=== PATIENT | male | born 1980 | race Caucasian/White ===

== ENCOUNTER 2016-11-08 09:57 | Outpatient (CLI) | payer MEDICARE, MEDICAID ==
[2016-11-08 13:04] LABS: BASOPHILS % (AUTO) 0.3 %; EOSINOPHILS % (AUTO) 0.4 %; HCT - HEMATOCRIT 41.9 % (42.0-52.0); HGB - HEMOGLOBIN 14.4 g/dL (14.0-18.0); LYMPHOCYTES # (AUTO) 1.1 10^3/uL (1.5-3.5); LYMPHOCYTES % (AUTO) 24.1 %; MEAN CORPUSCULAR HEMOGLOBIN 28.4 pg (27.0-31.0); MEAN CORPUSCULAR HGB CONC 34.4 g/dL (32.0-36.0); MEAN CORPUSCULAR VOLUME 82.8 fL (80.0-94.0); MEAN PLATELET VOLUME 8.9 fL (7.4-11.4); MONOCYTES # (AUTO) 0.3 10^3/uL (0.0-1.0); MONOCYTES % (AUTO) 6.8 %; NEUTROPHILS # (AUTO) 3.2 10^3/uL (1.5-6.6); NEUTROPHILS % (AUTO) 68.4 %; NUCLEATED RED BLOOD CELLS AUTO 0.3 /100WBC; RED BLOOD COUNT 5.06 10^6/uL (4.70-6.10); RED CELL DISTRIBUTION WIDTH 13.2 % (12.0-15.0); UNCORRECTED WHITE BLOOD COUNT 4.7 x10^3/uL; WHITE BLOOD COUNT 4.7 x10^3/uL (4.8-10.8)
[2016-11-08 14:01] LABS: ALBUMIN/GLOBULIN RATIO 1.5 (1.0-2.2); BILIRUBIN,TOTAL 0.6 mg/dL (0.2-1.0); BUN - BLOOD UREA NITROGEN 10 mg/dL (6-20); CALCIUM 9.2 mg/dL (8.5-10.3); CARBON DIOXIDE - CO2 25 mmol/L (21-32); CHLORIDE 105 mmol/L (101-111); CHOL/HDL RATIO 3.1 (<5.0); CHOLESTEROL 135 mg/dL; CREATININE 0.7 mg/dL (0.6-1.2); GFR - MDRD 126 (>89); GLUCOSE 99 mg/dL (70-100); HDL CHOLESTEROL 43 mg/dL; LDL/HDL RATIO 1.9 (<3.6); POTASSIUM 4.3 mmol/L (3.5-5.0); SODIUM 138 mmol/L (135-145); TOTAL PROTEIN 7.4 g/dL (6.7-8.2); TRIGLYCERIDES 57 mg/dL; VLDL CHOLESTEROL 11 mg/dL
== END 2016-11-08 09:58 | disposition home or self-care (01) ==
LOC: LAB.N 09:57
PROVIDERS: ATTEND Nurse Practitioner Gerontology
DX: Z79.899 Other long term (current) drug therapy (principal)
CPT/HCPCS: 36415; 80053; 80061; 80175; 84443; 85025

== ENCOUNTER 2017-03-29 08:00 | Outpatient (CLI) | payer MEDICARE, MEDICAID | END 2017-03-29 08:01 | disposition home or self-care (01) | LOC: LAB.N 08:00 | PROVIDERS: ATTEND Nurse Practitioner Gerontology | DX: Z79.899 Other long term (current) drug therapy (principal) | CPT/HCPCS: 36415; 80175 ==

== ENCOUNTER 2017-06-20 08:00 | Outpatient (CLI) | payer MEDICARE, MEDICAID ==
[2017-06-20 19:01] LABS: BASOPHILS % (AUTO) 0.4 %; EOSINOPHILS % (AUTO) 0.5 %; HGB - HEMOGLOBIN 12.5 g/dL (14.0-18.0); LYMPHOCYTES # (AUTO) 1.1 10^3/uL (1.5-3.5); MEAN CORPUSCULAR HEMOGLOBIN 29.7 pg (27.0-31.0); MEAN CORPUSCULAR HGB CONC 33.6 g/dL (32.0-36.0); MEAN CORPUSCULAR VOLUME 88.5 fL (80.0-94.0); MEAN PLATELET VOLUME 9.1 fL (7.4-11.4); MONOCYTES # (AUTO) 0.2 10^3/uL (0.0-1.0); MONOCYTES % (AUTO) 5.5 %; NEUTROPHILS # (AUTO) 1.6 10^3/uL (1.5-6.6); NEUTROPHILS % (AUTO) 55.6 %; PLT - PLATELET COUNT 105 10^3/uL (130-450); RED BLOOD COUNT 4.21 10^6/uL (4.70-6.10); RED CELL DISTRIBUTION WIDTH 13.2 % (12.0-15.0); WHITE BLOOD COUNT 2.9 x10^3/uL (4.8-10.8)
[2017-06-20 19:10] LABS: ALBUMIN 4.3 g/dL (3.2-5.5); ALKALINE PHOSPHATASE 44 IU/L (42-121); ALT ALANINE AMINOTRANSFERASE 12 IU/L (10-60); AST ASPARTATE AMINOTRANSFERASE 19 IU/L (10-42); BILIRUBIN,TOTAL 0.7 mg/dL (0.2-1.0); BUN - BLOOD UREA NITROGEN 15 mg/dL (6-20); CALCIUM 8.5 mg/dL (8.5-10.3); CARBON DIOXIDE - CO2 27 mmol/L (21-32); CHLORIDE 106 mmol/L (101-111); CREATININE 0.8 mg/dL (0.6-1.2); GFR - MDRD 108 (>89); GLUCOSE 75 mg/dL (70-100); SODIUM 137 mmol/L (135-145); TOTAL PROTEIN 6.5 g/dL (6.7-8.2)
== END 2017-06-20 08:01 | disposition home or self-care (01) ==
LOC: LAB.N 08:00
PROVIDERS: ATTEND Nurse Practitioner Gerontology
DX: I50.9 Heart failure, unspecified (principal); Z79.899 Other long term (current) drug therapy
CPT/HCPCS: 36415; 80053; 83880; 84443; 85025

== ENCOUNTER 2019-01-19 16:06 | Outpatient (CLI) | payer MEDICARE, MEDICAID | END 2019-01-19 16:07 | disposition critical access hospital (66) | LOC: EMS 16:06 | PROVIDERS: ATTEND Surgery | DX: R42 Dizziness and giddiness (principal); H53.9 Unspecified visual disturbance | CPT/HCPCS: A0425; A0429 ==

== ENCOUNTER 2019-01-19 16:29 | Inpatient (IN) | payer MEDICARE, MEDICAID ==
[2019-01-19 17:01] LABS: BASOPHILS % (AUTO) 0.2 %; EOSINOPHILS % (AUTO) 1.6 %; HGB - HEMOGLOBIN 13.8 g/dL (14.0-18.0); LYMPHOCYTES % (AUTO) 7.7 %; MEAN CORPUSCULAR HEMOGLOBIN 29.3 pg (27.0-31.0); MEAN CORPUSCULAR HGB CONC 34.3 g/dL (32.0-36.0); MEAN CORPUSCULAR VOLUME 85.4 fL (80.0-94.0); MEAN PLATELET VOLUME 10.1 fL (7.4-11.4); MONOCYTES % (AUTO) 2.4 %; NEUTROPHILS % (AUTO) 87.8 %; PLT - PLATELET COUNT 117 10^3/uL (130-450); RED BLOOD COUNT 4.71 10^6/uL (4.70-6.10); RED CELL DISTRIBUTION WIDTH 12.6 % (12.0-15.0); WHITE BLOOD COUNT 9.9 x10^3/uL (4.8-10.8)
[2019-01-19 17:10] LABS: ALBUMIN 4.5 g/dL (3.2-5.5); ALBUMIN/GLOBULIN RATIO 1.5 (1.0-2.2); BILIRUBIN,TOTAL 1.3 mg/dL (0.2-1.0); CALCIUM 9.2 mg/dL (8.5-10.3); CREATININE 0.8 mg/dL (0.6-1.2); TOTAL PROTEIN 7.6 g/dL (6.7-8.2)
[2019-01-19 17:17] LABS: ABNORMAL LYMPHS % (MANUAL) 0 %
[2019-01-19 17:23] LABS: BAND NEUTROPHILS % (MANUAL) 3 %; LYMPHOCYTES # (MANUAL) 0.6 10^3/uL (1.5-3.5); LYMPHOCYTES % (MANUAL) 6 %; MONOCYTES # (MANUAL) 0.2 10^3/uL (0.0-1.0)
[2019-01-19 17:25] LABS: PLATELET ESTIMATE, MANUAL DECREASED (<130,000) (NORMAL); PLATELET MORPHOLOGY NORMAL APPEARANCE (NORMAL); RBC MORPHOLOGY (MULTIPLE) NORMAL APPEARANCE (NORMAL)
[2019-01-19 17:26] LABS: DIFFERENTIAL COMMENT MANUAL DIFFERENTIAL
--- NOTE | 2019-01-19 17:47 | ED Physician Documentation ---
History of Present Illness - Stated complaint Stated Complaint: FALL - Chief complaint Chief Complaint: Neuro - Additonal information Additional information: This is a 38-year-old male with a history of schizophrenia, developmental delay, as well as seizure disorder, who presents with fall and dizziness. Patient states he was walking to the store and became dizzy, which he describes as lightheadedness and he fell down hitting his chin. He then tried to get back up but was dizzy so fell again. He denies loss of consciousness. He currently states that he feels slightly dizzy. He has not been hydrating well today. He has had horizontal nystagmus noted on past exams. He has some hardware in his left leg from a past fracture he states that his left leg is hurting more than usual, and he noticed it becoming red yesterday. He denies history of blood clots. No chest pain or shortness of breath. Review of Systems Constitutional: denies: Fever Cardiac: denies: Chest pain / pressure Respiratory: denies: Dyspnea GI: denies: Abdominal Pain : denies: Dysuria Skin: reports: Rash Musculoskeletal: reports: Extremity pain Neurologic: reports: Near syncope PD PAST MEDICAL HISTORY - Past Medical History Respiratory: None Endocrine/Autoimmune: None Psych: Depression, Anxiety, Schizophrenia - Past Surgical History Past Surgical History: Yes - Present Medications Home Medications: Ambulatory Orders Medication Instructions Recorded Confirmed OLANZapine [Olanzapine] 15 mg PO [facility] 06/14/14 07/25/14 Olanzapine 7.5 mg PO QDBREAKFAST #30 tablet 06/14/14 07/25/14 Olanzapine [Olanzapine Odt] 7.5 mg PO 06/14/14 07/25/14 Olanzapine [Zyprexa] 15 mg PO QPM #30 tablet 06/14/14 07/25/14 PARoxetine [Paxil] 10 mg PO ACHS 06/14/14 07/25/14 PARoxetine [Paxil] 10 mg PO DAILY #30 tablet 06/14/14 07/25/14 lamoTRIgine [Lamictal Xr] 50 mg PO BID 06/14/14 07/25/14 lamoTRIgine [Lamictal] 150 mg PO DAILY #30 tablet 06/14/14 07/25/14 LORazepam [Lorazepam] 0.5 mg PO BID PRN #14 tablet 06/17/14 07/25/14 Ibuprofen [Motrin] 400 mg PO Q6H PRN #30 tablet 07/25/14 - Allergies Allergies/Adverse Reactions: Allergies Allergy/AdvReac Type Severity Reaction Status Date / Time No Known Drug Allergies Allergy Verified 01/19/19 16:45 - Social History Does the pt smoke?: No Smoking Status: Never smoker Does the pt drink ETOH?: No Does the pt have substance abuse?: No PD ED PE NORMAL - General General: Alert and oriented X 3 - HEENT HEENT: Other (Small superficial abrasion to patient's chin, remainder of head is atraumatic.) - Neck Neck: Supple, no meningeal sign, No bony TTP - Cardiac Cardiac: Other (Tachycardic, regular rhythm) - Respiratory Respiratory: No respiratory distress, Clear bilaterally - Abdomen Abdomen: Soft, Non tender, Non distended - Male Male : Other (Scrotum and penis without lesions) - Extremities Extremities: Other (Left leg is edematous, area edematous from the ankle to the mid monsalve. There is no other area of erythema on the anterior proximal thigh.) - Neuro Neuro: Alert and oriented X 3, outside machinist 2-12 intact, No motor deficit, No sensory deficit, Other (Patient has bilateral horizontal nystagmus, which is been noted on past exams.No dysmetria.) - Psych Psych: Other (Flat affect, mumbles some responses) Results - Vitals Vitals: Vital Signs - 24 hr 01/19/19 01/19/19 01/19/19 16:35 17:44 18:55 Temperature 36.9 C Heart Rate 114 H 106 H 106 H Heart Rate [ Sitting] Heart Rate [ Supine] Respiratory 17 18 18 Rate Blood Pressure 150/95 H 145/101 H 157/95 H Blood Pressure [Sitting] Blood Pressure [Supine] O2 Saturation 100 99 99 01/19/19 01/19/19 01/19/19 20:00 22:00 22:40 Temperature Heart Rate 100 110 H Heart Rate [ 123 H Sitting] Heart Rate [ 109 H Supine] Respiratory 17 17 Rate Blood Pressure 148/90 H 153/93 H Blood Pressure 159/101 H [Sitting] Blood Pressure 160/97 H [Supine] O2 Saturation 99 100 01/20/19 01/20/19 00:00 00:33 Temperature 36.9 C Heart Rate 146 H 107 H Heart Rate [ Sitting] Heart Rate [ Supine] Respiratory 25 H 16 Rate Blood Pressure 132/86 H 145/107 H Blood Pressure [Sitting] Blood Pressure [Supine] O2 Saturation 97 96 Oxygen O2 Source Room air - EKG (time done) 16:55 Other comments: Other comments (Rate 109, rhythm sinus tachycardia, there is slight ST elevation in V2, less than 2 mm, and following a deep S wave, consistent with early repolarization. Intervals within normal limits) - Labs Labs: Laboratory Tests 01/19/19 01/19/19 01/19/19 16:53 16:53 16:53 WBC 9.9 RBC 4.71 Hgb 13.8 L Hct 40.2 L MCV 85.4 MCH 29.3 MCHC 34.3 RDW 12.6 Plt Count 117 L MPV 10.1 Neut # (Auto) Not Reportable Lymph # (Auto) Not Reportable [place] # (Auto) Not Reportable Eos # (Auto) Not Reportable Baso # (Auto) Not Reportable Absolute Nucleated RBC Not Reportable Total Counted 100 Band Neuts % (Manual) 3 Abnorm Lymph % (Manual) 0 Nucleated RBC % Not Reportable Neutrophils # (Manual) 9.1 H Lymphocytes # (Manual) 0.6 L Monocytes # (Manual) 0.2 Eosinophils # (Manual) 0.0 Basophils # (Manual) 0.0 Differential Comment MANUAL DIFFERENTIAL Manual Slide Review Indicated Platelet Estimate DECREASED (<130,000) Platelet Morphology NORMAL APPEARANCE RBC Morph Micro Appear NORMAL APPEARANCE Sodium 134 L Potassium 3.8 Chloride 98 L Carbon Dioxide 26 Anion Gap 10.0 BUN 13 Creatinine 0.8 Estimated GFR (MDRD) 107 Glucose 135 H Lactic Acid Calcium 9.2 Total Bilirubin 1.3 H AST 28 ALT 16 Alkaline Phosphatase 51 Total Creatine Kinase Troponin I High Sens 3.7 Total Protein 7.6 Albumin 4.5 Globulin 3.1 Albumin/Globulin Ratio 1.5 Lipase 28 01/19/19 01/19/19 16:53 22:30 WBC RBC Hgb Hct MCV MCH MCHC RDW Plt Count MPV Neut # (Auto) Lymph # (Auto) [place] # (Auto) Eos # (Auto) Baso # (Auto) Absolute Nucleated RBC Total Counted Band Neuts % (Manual) Abnorm Lymph % (Manual) Nucleated RBC % Neutrophils # (Manual) Lymphocytes # (Manual) Monocytes # (Manual) Eosinophils # (Manual) Basophils # (Manual) Differential Comment Manual Slide Review Platelet Estimate Platelet Morphology RBC Morph Micro Appear Sodium Potassium Chloride Carbon Dioxide Anion Gap BUN Creatinine Estimated GFR (MDRD) Glucose Lactic Acid 1.0 Calcium Total Bilirubin AST ALT Alkaline Phosphatase Total Creatine Kinase 230 Troponin I High Sens Total Protein Albumin Globulin Albumin/Globulin Ratio Lipase - Rads (name of study) DVT LLE Radiology: Other (No DVT in the imaged portion of the leg) XR ankle and tib/fib Radiology: Other (Soft tissue swelling without osseous abnormality or soft tissue gas) PD MEDICAL DECISION MAKING - ED course Complexity details: considered differential (Dehydration, electrolyte abnormality, dysrhythmia, UTI, cellulitis, DVT, pulmonary embolism) ED course: On arrival patient is tachycardic, nontoxic-appearing. He has an unremarkable neurologic exam other than he does have some horizontal nystagmus, which has been noted on past exams. He is describing his dizziness as a lightheadedness and not a vertigo, He has no dysmetria or ataxia or signs of posterior circulation stroke. EKG shows no convincing signs of ischemia or dysrhythmia, troponin is negative. Labs are drawn, No leukocytosis, hemoglobin shows a very slight anemia at 13.8, electrolytes notable for very mild hypo-natremia and hypochloremia, his lactic acid is normal.Overall I feel his lightheadedness is likely related to some dehydration, especially since he is feeling somewhat better after fluids. X-ray showed no osseous abnormality or soft tissue gas, DVT scan of the left lower leg shows no DVT. Bedside ultrasound shows normal ejection fraction of the heart, no right ventricular strain. He has no chest pain or shortness of breath, and pulmonary embolism is highly unlikely. On repeat examination after multiple hours in the emergency department, his redness has progressed, and he continues to have difficulty bearing weight on the leg. Given his erythema and edema of his leg, we started treatment for potential cellulitis with ceftriaxone. Vancomycin was added, and patient is admitted for cellulitis. Although his labs are benign at this time, his physical exam is concerning, and he appears to need IV antibiotics given the rate of spread, and further monitoring in the hospital given his persistent tachycardia despite IV and p.o. fluids. Necrotizing fasciitis was considered, patient's laboratory results make this extremely unlikely, but the margins of erythema are marked out and dated/ timed and I do feel patient does warrant serial exams, if he is having worsening he may require further work-up or treatment for more serious soft tissue infection. Dr. Arora accepted patient for observation. Departure - Departure Disposition: ED Place in Observation Clinical Impression: Cellulitis, Pre-syncope Condition: Good
--- NOTE | 2019-01-19 19:04 | XRAY Report ---
Reason: redness and swelling and tenderness Procedure Date: 01/19/2019 Accession Number: [id number] / [id number] Procedure: XR - Ankle 3 View LT CPT Code: Final Report FULL RESULT: EXAM: LEFT ANKLE RADIOGRAPHY EXAM DATE: 01/19/2019 06:31 PM. CLINICAL HISTORY: Redness and swelling and tenderness. COMPARISON: None. TECHNIQUE: 3 views. FINDINGS: Bones: Distal tibia intramedullary nail and interlocking screws. No acute bone findings are seen. Joints: Normal. No effusion. No subluxations. The ankle mortise is normally aligned. Soft Tissues: Moderate diffuse ankle soft tissue swelling. IMPRESSION: Moderate diffuse ankle soft tissue swelling. No acute bone findings are seen. RADIA
--- NOTE | 2019-01-19 19:06 | XRAY Report ---
Reason: redness and swelling Procedure Date: 01/19/2019 Accession Number: [id number] / [id number] Procedure: XR - Tib/Fib LT CPT Code: Final Report FULL RESULT: EXAM: LEFT TIBIA/FIBULA RADIOGRAPHY EXAM DATE: 01/19/2019 06:30 PM. CLINICAL HISTORY: Redness and swelling. COMPARISON: 07/01 TECHNIQUE: 2 views. FINDINGS: Bones: Old fracture of the proximal fibula. Intramedullary jay and screws fixating the tibia. No acute fractures. Joints: No subluxations. Soft Tissues: Soft tissue phleboliths in the anterior soft tissues IMPRESSION: No acute fractures. RADIA
--- NOTE | 2019-01-19 19:28 | Ultrasound Report ---
Reason: Redness and swelling Procedure Date: 01/19/2019 Accession Number: [id number] / [id number] Procedure: US - Duplex Ext Veins Left CPT Code: Final Report FULL RESULT: EXAM: LEFT LOWER EXTREMITY VENOUS ULTRASOUND EXAM DATE: 01/19/2019 06:32 PM. CLINICAL HISTORY: Left leg erythema and swelling. COMPARISON: None. TECHNIQUE: Real-time sonographic vascular imaging was performed by the assistant curator through the lower extremity utilizing both color-flow and Doppler spectral analysis. Multiple textiles sales representative static images were saved for review. FINDINGS: Common Femoral Vein (CFV): Normal. CFV-GSV Junction: Normal. Profunda Femoral Vein (PFV): Normal. Femoral Vein (FV) Prox: Normal. Femoral Vein (FV) Mid: Normal. Femoral Vein (FV) Dist: Limited evaluation. No obvious deep venous thrombosis. Popliteal Vein: Normal. Posterior Tibial Veins: Limited evaluation. No obvious deep venous thrombosis. Peroneal Veins: Not visualized secondary to calf edema. Other: None. IMPRESSION: 1. No evidence for deep venous thrombosis within the limits of the study, as detailed above. RADIA
[2019-01-19] MEDS ORDERED: cefTRIAXone 1 GM in SODIUM CHLORIDE 0.9% MINIBAG 100 ML IV STA (22:30)
[2019-01-19] MEDS ORDERED: ACETAMINOPHEN 325 MG TABLET PO STA (22:58)
[2019-01-19] MEDS ORDERED: oxyCODONE 5 MG TABLET PO STA (22:58)
[2019-01-19] MEDS ORDERED: SODIUM CHLORIDE 0.9% 1,000 ML IV ONE (23:29)
[2019-01-20] MEDS ORDERED: VANCOMYCIN INJ 2 GM in SODIUM CHLORIDE 0.9% 500 ML IV STA (00:24)
[2019-01-20] MEDS ORDERED: SODIUM CHLORIDE FLUSH 0.9% 10 ML SYRINGE IVP PRN (01:02)
[2019-01-20] MEDS ORDERED: oxyCODONE 5 MG TABLET PO PRN (01:02)
--- NOTE | 2019-01-20 01:13 | HISTORY & PHYSICAL EXAMINATION ---
Chief Complaint - Chief Complaint Chief Complaint: fall, couldn't walk, left leg swelling and pain History of Present Illness - Admitted From Admitted From:: [facility] ED - History Obtained From Records Reviewed: yes History obtained from: patient - History of Present Illness HPI Comment/Other: This is a 38-year-old male with a history of schizophrenia, developmental delay, as well as seizure disorder, who presents with fall and dizziness. Patient states he was walking to the store and became dizzy, which he describes as lightheadedness and he fell down hitting his chin. He then tried to get back up but was dizzy so fell again. He denies loss of consciousness. He currently states that he feels slightly dizzy. He has not been hydrating well today. He has had horizontal nystagmus noted on past exams. He has some hardware (a jay) in his left leg from a past fracture he states that his left leg is hurting more than usual, and he noticed it becoming red yesterday. He denies history of blood clots. No chest pain or shortness of breath. While in the ED, it was noticed that the distal half of his left lower extremity between his knee and ankle was swollen, erythematous with a sheen and painful to touch. It also appeared on the verge of blistering. Over the course of being in the ED it appeared the redness progressed proximally with a streak up his thigh. It feel warm to touch. He reports that his leg has been hurting for the past 2 days. He denies any previous occurence. he reports chills but no fever. He was tachycardic upon presentation and persisted even with IV hydration. As a result of the rapid progression of his erythema and his overall clinical picture of tachycardia, dizziness and unsteadiness on his feet, he was presented for admission History - Past Medical History Respiratory: reports: None Endocrine/Autoimmune: reports: None Psych: reports: Depression, Anxiety, Schizophrenia, Other (Insomnia) MRSA Hx?: No - Past Surgical History Ortho: reports: Other (left leg surgery (jay placed)) - Family & Social History Family History Comment/Other: mother: cancer(unspecified). grandfather: [place] Social History Notes: He reports that he lives alone. He denies alcohol, tobacco or illicit drug use. - POLST Patient has POLST: No POLST Status: Full Code Meds/Allgy - Home Medications Home Medications: Ambulatory Orders Medication Instructions Recorded Confirmed OLANZapine [Olanzapine] 15 mg PO ACHS 06/14/14 07/25/14 Olanzapine 7.5 mg PO QDBREAKFAST #30 tablet 06/14/14 07/25/14 Olanzapine [Olanzapine Odt] 7.5 mg PO 06/14/14 07/25/14 Olanzapine [Zyprexa] 15 mg PO QPM #30 tablet 06/14/14 07/25/14 PARoxetine [Paxil] 10 mg PO ACHS 06/14/14 07/25/14 PARoxetine [Paxil] 10 mg PO DAILY #30 tablet 06/14/14 07/25/14 lamoTRIgine [Lamictal Xr] 50 mg PO BID 06/14/14 07/25/14 lamoTRIgine [Lamictal] 150 mg PO DAILY #30 tablet 06/14/14 07/25/14 LORazepam [Lorazepam] 0.5 mg PO BID PRN #14 tablet 06/17/14 07/25/14 Ibuprofen [Motrin] 400 mg PO Q6H PRN #30 tablet 07/25/14 - Allergies Allergies/Adverse Reactions: Allergies Allergy/AdvReac Type Severity Reaction Status Date / Time No Known Drug Allergies Allergy Verified 01/19/19 16:45 Review of Systems - Constitutional Constitutional: reports: Chills, Weakness. denies: Fever - Eyes Eyes: denies: Pain, Dipolpia - Ears, Nose & Throat Ears, Nose & Throat: denies: Ear pain, Tinnitus, Hoarseness - Cardiovascular Cariovascular: reports: Edema (left leg), Lightheadedness, Other (tachycardia). denies: Chest pain - Respiratory Respiratory: denies: Cough, Sputum production, Wheezing, SOB at rest, SOB with exertion - Gastrointestinal Gastrointestinal: denies: Abdominal pain, Abdominal distention, Constipation, Diarrhea, Nausea, Vomiting, Coffee grounds emesis, Reflux/heartburn - Genitourinary Genitourinary: denies: Dysuria, Frequency, Urgency, Hematuria - Musculoskeletal Musculoskeletal: denies: Muscle pain, Back pain - Integumentary Integumentary: reports: Rash (left leg) - Neurological Neurological: reports: General weakness, Dizziness. denies: Focal weakness - Psychiatric Psychiatric: reports: Depression - Endocrine Endocrine: denies: Polyuria, Polydypsia - Hematologic/Lymphatic Hematologic/Lymphatic: denies: Anemia, Bruising, Petechiae Prior Level of Functionality: Patient is independent of activities of daily living Exam - Vital Signs Vital Signs: Vital Signs x48h Temp Pulse Pulse Pulse Resp BP BP 01/20/19 00:33 107 H 16 145/107 H 01/20/19 00:00 36.9 C 146 H 25 H 132/86 H 01/19/19 22:40 123 H 109 H 159/101 H 01/19/19 22:00 110 H 17 153/93 H 01/19/19 20:00 100 17 148/90 H 01/19/19 18:55 106 H 18 157/95 H 01/19/19 17:44 106 H 18 145/101 H BP Pulse Ox 01/20/19 00:33 96 01/20/19 00:00 97 01/19/19 22:40 160/97 H 01/19/19 22:00 100 01/19/19 20:00 99 01/19/19 18:55 99 01/19/19 17:44 99 - Physical Exam General Appearance: positive: Alert, Moderate distress Eyes Bilateral: positive: Normal inspection, PERRL, EOMI ENT: positive: Other (wound on chin from fall) Neck: positive: Nml inspection, No JVD, Trachea midline Respiratory: positive: Chest non-tender, No respiratory distress, Breath sounds nml. negative: Wheezes, Rales, Rhonchi Cardiovascular: positive: Tachycardia Abdomen: positive: Non-tender, No organomegaly, Nml bowel sounds, No distention. negative: Guarding, Rebound Back: positive: Nml inspection Skin: positive: Warm, Other (left leg erythematous, warm to touch, tender to touch, has a sheen and appears on the verge of blistering) Extremities: positive: Pedal edema Neurologic/Psychiatric: positive: Oriented x3, CN's nml (2-12) Conclusion/Plan - Problem List (1) Cellulitis Conclusion/Plan: Patient given vancomycin and rocephin in the ED Will continue vancomycin and add clindamycin Blood cultures ordered (however they were obtained after antibiotics initiated) IV hydration. Tylenol for fever Qualifiers: Site of cellulitis: extremity Site of cellulitis of extremity: lower extremity Laterality: left Qualified Code(s): L03.116 - Cellulitis of left lower limb (2) Schizophrenia Conclusion/Plan: On lamictal and olanzapine (3) History of psychosis Conclusion/Plan: On olanzapine and lamictal (4) Depression Conclusion/Plan: On paroxetine - Lab Results Fish Bones: 01/19/19 16:53 01/19/19 16:53 Core Measures - Anticipated LOS I expect patient to be DC'd or transferred within 96 hours.: Yes - DVT/VTE - Prophylaxis VTE/DVT Device ordered at admit?: Yes VTE/DVT Prophylaxis med ordered at admit?: Yes
[2019-01-20] MEDS ORDERED: VANCOMYCIN PER PHARMACY 100 GM in SODIUM CHLORIDE 0.9% 250 ML IV SCH (02:00)
[2019-01-20] MEDS ORDERED: CLINDAMYCIN 600 MG/50 ML 50 ML IV SCH (02:00)
[2019-01-20] MEDS: SODIUM CHLORIDE 0.9% 1,000 ML IV SCH ×3 (03:19→18:38)
[2019-01-20] MEDS: SODIUM CHLORIDE FLUSH 0.9% 10 ML SYRINGE IVP SCH ×2 (03:20→17:06)
[2019-01-20] MEDS: CLINDAMYCIN 600 MG/50 ML 50 ML IV SCH ×2 (03:20→11:56)
[2019-01-20 05:28] LABS: MUDS CUTOFF CONCENTRATIONS CUTOFF CONC BELOW:
[2019-01-20 05:34] LABS: BASOPHILS % (AUTO) 0.3 %; LYMPHOCYTES % (AUTO) 13.4 %; MEAN CORPUSCULAR HEMOGLOBIN 29.1 pg (27.0-31.0); MEAN CORPUSCULAR VOLUME 85.5 fL (80.0-94.0); MEAN PLATELET VOLUME 10.3 fL (7.4-11.4); MONOCYTES % (AUTO) 3.7 %; PLT - PLATELET COUNT 108 10^3/uL (130-450); RED BLOOD COUNT 4.13 10^6/uL (4.70-6.10); RED CELL DISTRIBUTION WIDTH 12.6 % (12.0-15.0); WHITE BLOOD COUNT 6.7 x10^3/uL (4.8-10.8)
[2019-01-20 05:37] LABS: ABNORMAL LYMPHS % (MANUAL) 0 %; BAND NEUTROPHILS % (MANUAL) 0 %
[2019-01-20 05:39] LABS: BILIRUBIN,URINE NEGATIVE (NEGATIVE); GLUCOSE, URINE (UA) NEGATIVE (NEGATIVE); KETONES,URINE (UA) 15 mg/dL (NEGATIVE); LEUKOCYTE ESTERASE, URINE NEGATIVE (NEGATIVE); NITRITE,URINE NEGATIVE (NEGATIVE); OCCULT BLOOD,URINE NEGATIVE (NEGATIVE); PROTEIN,URINE TRACE mg/dL (NEGATIVE); UROBILINOGEN,URINE 1 (NORMAL) E.U./dL (NORMAL)
[2019-01-20 05:41] LABS: CALCIUM 8.2 mg/dL (8.5-10.3); CREATININE 0.8 mg/dL (0.6-1.2)
[2019-01-20 05:49] LABS: CLARITY,URINE CLEAR (CLEAR)
[2019-01-20 05:56] LABS: BACTERIA,URINE Rare /HPF (None Seen); RBC,URINE None Seen /HPF (0-5); SQUAMOUS EPITHELIAL CELL,UR RARE Squamous (<= Few)
[2019-01-20 05:59] LABS: AMPHETAMINE SCREEN,URINE NEGATIVE (NEGATIVE); BENZODIAZEPINES SCREEN, URINE NEGATIVE (NEGATIVE); COCAINE SCREEN URINE NEGATIVE (NEGATIVE); METHADONE SCREEN, URINE NEGATIVE (NEGATIVE); METHAMPHETAMINES SCREEN, URINE NEGATIVE (NEGATIVE); OPIATE SCREEN, URINE NEGATIVE (NEGATIVE); OXYCODONE SCREEN, URINE NEGATIVE (NEGATIVE); PROPOXYPHENE SCREEN, URINE NEGATIVE (NEGATIVE); TRICYCLIC ANTIDEPRESSANT,URINE NEGATIVE (NEGATIVE)
[2019-01-20 06:09] LABS: LYMPHOCYTES # (MANUAL) 0.9 10^3/uL (1.5-3.5); LYMPHOCYTES % (MANUAL) 13 %
[2019-01-20 06:10] LABS: DIFFERENTIAL COMMENT MANUAL DIFFERENTIAL; PLATELET ESTIMATE, MANUAL DECREASED (<130,000) (NORMAL); PLATELET MORPHOLOGY NORMAL APPEARANCE (NORMAL); RBC MORPHOLOGY (MULTIPLE) NORMAL APPEARANCE (NORMAL)
[2019-01-20 08:28] LABS: HEMOGLOBIN A1C 0.33 g/dL; HEMOGLOBIN A1C % 4.7 % (4.6-6.2)
[2019-01-20] MEDS: ENOXAPARIN 40 MG/0.4 ML SYRINGE SUBQ SCH (08:43)
[2019-01-20] MEDS: ACETAMINOPHEN 325 MG TABLET PO PRN ×2 (08:43→21:24)
[2019-01-20] MEDS: lamoTRIgine 100 MG TABLET PO SCH ×2 (09:38→20:37)
[2019-01-20] MEDS: OLANZapine ODT 5 MG TABLET TL SCH ×2 (09:39→20:37)
[2019-01-20] MEDS ORDERED: VANCOMYCIN INJ 1 GM, VANCOMYCIN INJ 500 MG in SODIUM CHLORIDE 0.9% 500 ML IV SCH (10:00)
[2019-01-20] MEDS: PIPERACILLIN/TAZOBACTAM 3.375 GM in SODIUM CHLORIDE 0.9% MINIBAG 100 ML IV SCH ×3 (10:50→21:24)
[2019-01-20] MEDS: VANCOMYCIN INJ 1 GM, VANCOMYCIN INJ 250 MG in SODIUM CHLORIDE 0.9% 250 ML IV SCH ×2 (12:23→19:51)
[2019-01-20] MEDS: SACCHAROMYCES BOULARDII 250 MG CAPSULE PO SCH (17:05)
[2019-01-20] MEDS: hydrOXYzine PAMOATE 25 MG CAPSULE PO SCH (20:37)
[2019-01-20] MEDS: PARoxetine 10 MG TABLET PO SCH (20:38)
[2019-01-21] MEDS: SODIUM CHLORIDE 0.9% 1,000 ML IV SCH ×3 (03:48→18:39)
[2019-01-21] MEDS: SODIUM CHLORIDE FLUSH 0.9% 10 ML SYRINGE IVP SCH ×3 (03:48→16:14)
[2019-01-21] MEDS: PIPERACILLIN/TAZOBACTAM 3.375 GM in SODIUM CHLORIDE 0.9% MINIBAG 100 ML IV SCH ×4 (03:49→21:11)
[2019-01-21] MEDS: VANCOMYCIN INJ 1 GM, VANCOMYCIN INJ 250 MG in SODIUM CHLORIDE 0.9% 250 ML IV SCH ×3 (04:24→19:38)
[2019-01-21 05:29] LABS: BASOPHILS % (AUTO) 0.2 %; HGB - HEMOGLOBIN 10.8 g/dL (14.0-18.0); LYMPHOCYTES # (AUTO) 0.8 10^3/uL (1.5-3.5); LYMPHOCYTES % (AUTO) 18.7 %; MEAN CORPUSCULAR HEMOGLOBIN 27.7 pg (27.0-31.0); MEAN CORPUSCULAR VOLUME 86.4 fL (80.0-94.0); MEAN PLATELET VOLUME 9.6 fL (7.4-11.4); MONOCYTES # (AUTO) 0.3 10^3/uL (0.0-1.0); MONOCYTES % (AUTO) 6.8 %; NEUTROPHILS # (AUTO) 3.2 10^3/uL (1.5-6.6); NEUTROPHILS % (AUTO) 73.8 %; PLT - PLATELET COUNT 94 10^3/uL (130-450); RED CELL DISTRIBUTION WIDTH 13.4 % (12.0-15.0); WHITE BLOOD COUNT 4.3 x10^3/uL (4.8-10.8)
[2019-01-21 05:56] LABS: CALCIUM 8.1 mg/dL (8.5-10.3); CREATININE 0.7 mg/dL (0.6-1.2)
[2019-01-21] MEDS: OLANZapine ODT 5 MG TABLET TL SCH ×2 (08:53→20:53)
[2019-01-21] MEDS: SACCHAROMYCES BOULARDII 250 MG CAPSULE PO SCH ×2 (08:55→16:14)
[2019-01-21] MEDS: ENOXAPARIN 40 MG/0.4 ML SYRINGE SUBQ SCH (08:56)
[2019-01-21] MEDS: lamoTRIgine 100 MG TABLET PO SCH ×2 (08:56→20:53)
[2019-01-21 11:46] LABS: VANCOMYCIN,TROUGH 12.9 ug/mL (10.0-20.0)
--- NOTE | 2019-01-21 11:59 | PROVIDER PROGRESS NOTE ---
Subjective - Prog Note Date Prog Note Date: 01/21/19 Prog Note Time: 09:00 - Subjective Pt reports feeling: Improved Subjective: skin and muslce of affected leg stings and johnson a little but tolerable. no cp, no sob, feels better than last night Current Medications - Current Medications Current Medications: Active Medications Acetaminophen (Tylenol) 650 mg PO Q4HR PRN PRN Reason: Pain 1 to 4 Last Admin: 01/20/19 21:24 Dose: 650 mg Enoxaparin Sodium (Lovenox) 40 mg SUBQ DAILY [facility] Last Admin: 01/21/19 08:56 Dose: 40 mg Hydroxyzine Pamoate (Vistaril) 100 mg PO QPM [facility] Last Admin: 01/20/19 20:37 Dose: 100 mg Sodium Chloride (Normal Saline 0.9%) 1,000 mls @ 125 mls/hr IV .Q8H [facility] Last Admin: 01/21/19 08:58 Dose: 125 mls/hr Piperacillin Sod/Tazobactam (Sod 3.375 gm/ Sodium Chloride) 100 mls @ 200 mls/hr IV Q6H [facility] Last Admin: 01/21/19 11:33 Dose: 200 mls/hr Vancomycin HCl 1 gm/Vancomycin HCl 250 mg/ Sodium Chloride 250 mls @ 167 mls/hr IV Q8H [facility] Lamotrigine (Lamictal) 150 mg PO BID [facility] Last Admin: 01/21/19 08:56 Dose: 150 mg Olanzapine (Zyprexa Odt) 7.5 mg TL QDBREAKFAST [facility] Last Admin: 01/21/19 08:53 Dose: 7.5 mg Olanzapine (Zyprexa Odt) 15 mg TL QPM [facility] Last Admin: 01/20/19 20:37 Dose: 15 mg Oxycodone HCl (Roxicodone) 5 mg PO Q4HR PRN PRN Reason: Pain 5 to 7 Last Admin: 01/20/19 06:56 Dose: 5 mg Paroxetine HCl (Paxil) 10 mg PO QPM [facility] Last Admin: 01/20/19 20:38 Dose: 10 mg Saccharomyces Boulardii (Florastor) 500 mg PO BIDWM [facility] Last Admin: 01/21/19 08:55 Dose: 500 mg Sodium Chloride (Normal Saline Flush 0.9%) 10 ml IVP PRN PRN PRN Reason: NEEDED PER PROVIDER ORDERS Sodium Chloride (Normal Saline Flush 0.9%) 10 ml IVP 0100,0900,1700 [facility] Last Admin: 01/21/19 08:57 Dose: Not Given Metformin HCl 500 mg PO BIDWM 01/20/19 OLANZapine [Olanzapine] 15 mg PO QPM 01/20/19 PARoxetine HCl [Paroxetine HCl] 10 mg PO QPM 01/20/19 hydrOXYzine pamoate [Hydroxyzine Pamoate] 50 - 100 mg PO QPM 01/20/19 lamoTRIgine [Lamictal] 150 mg PO BID 01/20/19 Objective - Vital Signs/Intake & Output Reviewed Vital Signs: Yes Vital Signs: Vital Signs x48h Temp Pulse Resp BP Pulse Ox 01/21/19 07:50 36.8 C 87 14 121/70 97 01/21/19 05:00 36.7 C 84 18 143/80 H 98 Intake & Output: Intake & Output 01/18/19 01/19/19 01/20/19 01/21/19 23:59 23:59 23:59 23:59 Intake Total 100 6599.167 1395.833 Output Total 2400 800 Balance 100 4199.167 595.833 - Objective General Appearance: positive: No acute distress, Alert, Other (coperative, flat affect, absorbed by the golf game on TV while he eats) Eyes Bilateral: positive: PERRL ENT: positive: No signs of dehydration Neck: positive: No JVD Respiratory: positive: Chest non-tender. negative: Wheezes, Rales, Rhonchi Cardiovascular: positive: Regular rate & rhythm. negative: Systolic murmur, Gallop/S4, Friction rub Abdomen: positive: Non-tender, No organomegaly, Nml bowel sounds, No distention Skin: positive: Other (the skin of his left leg has the cellultis changes. Marker drawn on skin of left lower extremity shows cellulitis was spreading with tentical like shape up medial calf, medial knee into lower medial thigh. The lateral spread stopped below the knee and down the calf. today, all his redness is below the knee. The dense, confluent redness is lightening in color and becoming more spotty at the mid third of the calf/monsalve but still dense and confluent distal third. You can feel the heat radiating off the leg even before you touch it. There is old barrier cream from home still on the medial calf from where he tried to treat himself.) Extremities: positive: Pedal edema (of entire left calf and tib/fib tissue area down to ankle and foot. Right leg comletely normal) Neurologic/Psychiatric: positive: Oriented x3, CN's nml (2-12), Motor nml, Other (flat affect.) - Lab Results Fish Bones: 01/21/19 05:19 01/21/19 05:19 Other Labs: Lab Results x24hrs 01/21/19 01/21/19 01/21/19 Range/Units 11:27 05:19 05:19 WBC 4.3 L (4.8-10.8) x10^3/uL RBC 3.90 L (4.70-6.10) 10^6/uL Hgb 10.8 L (14.0-18.0) g/dL Hct 33.7 L (42.0-52.0) % MCV 86.4 (80.0-94.0) fL MCH 27.7 (27.0-31.0) pg MCHC 32.0 (32.0-36.0) g/dL RDW 13.4 (12.0-15.0) % Plt Count 94 L (130-450) 10^3/uL MPV 9.6 (7.4-11.4) fL Neut # (Auto) 3.2 (1.5-6.6) 10^3/uL Lymph # (Auto) 0.8 L (1.5-3.5) 10^3/uL [place] # (Auto) 0.3 (0.0-1.0) 10^3/uL Eos # (Auto) 0.0 (0.0-0.7) 10^3/uL Baso # (Auto) 0.0 (0.0-0.1) 10^3/uL Absolute Nucleated RBC 0.00 x10^3/uL Nucleated RBC % 0.0 /100WBC Sodium 141 (135-145) mmol/L Potassium 3.6 (3.5-5.0) mmol/L Chloride 106 (101-111) mmol/L Carbon Dioxide 26 (21-32) mmol/L Anion Gap 9.0 (6-13) BUN 7 (6-20) mg/dL Creatinine 0.7 (0.6-1.2) mg/dL Estimated GFR (MDRD) 125 (>89) Glucose 115 H (70-100) mg/dL Calcium 8.1 L (8.5-10.3) mg/dL Nasal Screen MRSA (PCR) (NEGATIVE) Vancomycin Trough 12.9 (10.0-20.0) ug/mL 01/20/19 Range/Units 10:30 WBC (4.8-10.8) x10^3/uL RBC (4.70-6.10) 10^6/uL Hgb (14.0-18.0) g/dL Hct (42.0-52.0) % MCV (80.0-94.0) fL MCH (27.0-31.0) pg MCHC (32.0-36.0) g/dL RDW (12.0-15.0) % Plt Count (130-450) 10^3/uL MPV (7.4-11.4) fL Neut # (Auto) (1.5-6.6) 10^3/uL Lymph # (Auto) (1.5-3.5) 10^3/uL [place] # (Auto) (0.0-1.0) 10^3/uL Eos # (Auto) (0.0-0.7) 10^3/uL Baso # (Auto) (0.0-0.1) 10^3/uL Absolute Nucleated RBC x10^3/uL Nucleated RBC % /100WBC Sodium (135-145) mmol/L Potassium (3.5-5.0) mmol/L Chloride (101-111) mmol/L Carbon Dioxide (21-32) mmol/L Anion Gap (6-13) BUN (6-20) mg/dL Creatinine (0.6-1.2) mg/dL Estimated GFR (MDRD) (>89) Glucose (70-100) mg/dL Calcium (8.5-10.3) mg/dL Nasal Screen MRSA (PCR) NEGATIVE (NEGATIVE) Vancomycin Trough (10.0-20.0) ug/mL ABX Reporting Has patient been on IV antibiotics over the past 48 hours?: Yes Assessment/Plan - Problem List (1) Cellulitis Impression: of left lower extremity. He presented as weakness and falling twice. When seen in the ER severe, severe cellulitis of left leg but no fever, or elevated WBC. Later that encounter, he did spike to >38 degrees. Continues to lack a fever or elevated WBC. In fact WBC went below normal today. Area of redness and indurantion is now receding to the distal third of monsalve/calf as opposed to the entirety that was present on admisssion. Blood cultures neg at 24 hours. Plan: change to inpatient status since he is better but not good enough to come of IV today. Plan for reassess in am. consider change to po then. Patient given vancomycin and rocephin in the ED Will continue vancomycin and add clindamycin IV hydration. Tylenol for fever Qualifiers: Site of cellulitis: extremity Site of cellulitis of extremity: lower extremity Laterality: left Qualified Code(s): L03.116 - Cellulitis of left lower limb (2) Schizophrenia Conclusion/Plan: On lamictal and olanzapine He was taking metformin for "weight loss" and his A1c is 4.8%. (3) History of psychosis Conclusion/Plan: On olanzapine and lamictal (4) Depression Conclusion/Plan: On paroxetine Qualifiers: Qualified Code(s): L03.116 - Cellulitis of left lower limb
[2019-01-21] MEDS: hydrOXYzine PAMOATE 25 MG CAPSULE PO SCH (20:52)
[2019-01-21] MEDS: PARoxetine 10 MG TABLET PO SCH (20:52)
[2019-01-22] MEDS: SODIUM CHLORIDE FLUSH 0.9% 10 ML SYRINGE IVP SCH ×3 (01:13→17:03)
[2019-01-22] MEDS: PIPERACILLIN/TAZOBACTAM 3.375 GM in SODIUM CHLORIDE 0.9% MINIBAG 100 ML IV SCH ×3 (04:21→17:27)
[2019-01-22] MEDS: SODIUM CHLORIDE 0.9% 1,000 ML IV SCH ×3 (04:30→19:10)
[2019-01-22] MEDS: VANCOMYCIN INJ 1 GM, VANCOMYCIN INJ 250 MG in SODIUM CHLORIDE 0.9% 250 ML IV SCH ×2 (05:10→12:38)
[2019-01-22 05:24] LABS: BASOPHILS % (AUTO) 0.6 %; EOSINOPHILS % (AUTO) 0.3 %; HGB - HEMOGLOBIN 10.1 g/dL (14.0-18.0); LYMPHOCYTES # (AUTO) 0.8 10^3/uL (1.5-3.5); LYMPHOCYTES % (AUTO) 24.5 %; MEAN CORPUSCULAR HEMOGLOBIN 27.8 pg (27.0-31.0); MEAN CORPUSCULAR HGB CONC 31.9 g/dL (32.0-36.0); MEAN CORPUSCULAR VOLUME 87.3 fL (80.0-94.0); MEAN PLATELET VOLUME 9.9 fL (7.4-11.4); MONOCYTES # (AUTO) 0.3 10^3/uL (0.0-1.0); MONOCYTES % (AUTO) 8.1 %; NEUTROPHILS # (AUTO) 2.2 10^3/uL (1.5-6.6); NEUTROPHILS % (AUTO) 66.2 %; PLT - PLATELET COUNT 111 10^3/uL (130-450); RED BLOOD COUNT 3.63 10^6/uL (4.70-6.10); RED CELL DISTRIBUTION WIDTH 13.3 % (12.0-15.0); WHITE BLOOD COUNT 3.4 x10^3/uL (4.8-10.8)
[2019-01-22 05:25] LABS: CALCIUM 7.9 mg/dL (8.5-10.3); CREATININE 0.5 mg/dL (0.6-1.2)
[2019-01-22] MEDS: SACCHAROMYCES BOULARDII 250 MG CAPSULE PO SCH ×2 (08:35→17:00)
[2019-01-22] MEDS: OLANZapine ODT 5 MG TABLET TL SCH (08:35)
[2019-01-22] MEDS: lamoTRIgine 100 MG TABLET PO SCH (08:35)
[2019-01-22] MEDS: ENOXAPARIN 40 MG/0.4 ML SYRINGE SUBQ SCH (10:44)
[2019-01-22] MEDS ORDERED: DOCUSATE SODIUM 250 MG CAPSULE PO SCH (16:00)
[2019-01-22] MEDS ORDERED: POLYETHYLENE GLYCOL 3350 17 GM PACKET PO SCH (16:00)
[2019-01-22] MEDS ORDERED: SENNA 8.6 MG TABLET PO SCH (16:00)
[2019-01-22 16:12] VITALS: BP 123/75
--- NOTE | 2019-01-22 18:09 | Discharge Plan ---
Discharge Plan Problem Reviewed?: Yes Disposition: Home, Self Care Condition: Stable Prescriptions: Clindamycin HCl [Clindamycin 300MG CAP] 300 mg PO QID #28 capsule Saccharomyces Boulardii [Florastor] 250 mg PO BID #14 capsule Diet: Low Sodium Activity Restrictions: Activity as Tolerated Shower Restrictions: No Assistance Devices: Walker Weight Bearing: Full Weight Instruction Topics: Cellulitis Dc, Thickened Nails Health Concerns: Admitted with severe leg cellulitis, improved with antibiotics. Poor toe nail care may be the cause. Inattention to hygiene possibly from autism, is a contributing factor. Plan of Treatment: Finish a course of oral antibiotics with probiotics. Get needed Podiatry care. Resume all pre-hospital medications. Care Goals: Improvement and stabilization. Assessment: The plan was reviewed with the parents, who will be taking him to their residence for this treatment. No Smoking: If you smoke, Please STOP! Call for help. Follow-up with: Elisha Estrella ARNP [Credentialed Staff Provider] -
--- NOTE | 2019-01-22 18:44 | DISCHARGE SUMMARY ---
Discharge Summary Admit Date: 01/20/19 Discharge Date: 01/22/19 Discharging Provider: Kelly Springer MD Primary Care Provider: Elisha Estrella NP Condition at Discharge: Stable Discharge Disposition: 01 Home, Self Care - DIAGNOSES Admission Diagnoses: (1) Cellulitis (2) Schizophrenia (3) History of psychosis (4) Depression Discharge Diagnoses with Status of Each Condition: See below - HPI History of Present Illness: From the admission H&P of Dr Mesha Arora: This is a 38-year-old male with a history of schizophrenia, developmental delay, as well as seizure disorder, who presents with fall and dizziness. Patient states he was walking to the store and became dizzy, which he describes as lightheadedness and he fell down hitting his chin. He then tried to get back up but was dizzy so fell again. He denies loss of consciousness. He currently states that he feels slightly dizzy. He has not been hydrating well today. He has had horizontal nystagmus noted on past exams. He has some hardware (a jay) in his left leg from a past fracture he states that his left leg is hurting more than usual, and he noticed it becoming red yesterday. He denies history of blood clots. No chest pain or shortness of breath. While in the ED, it was noticed that the distal half of his left lower extremity between his knee and ankle was swollen, erythematous with a sheen and painful to touch. It also appeared on the verge of blistering. Over the course of being in the ED it appeared the redness progressed proximally with a streak up his thigh. It feel warm to touch. He reports that his leg has been hurting for the past 2 days. He denies any previous occurrences. he reports chills but no fever. He was tachycardic upon presentation and persisted even with IV hydration. As a result of the rapid progression of his erythema and his overall clinical picture of tachycardia, dizziness and unsteadiness on his feet, he was presented for admission. - HOSPITAL COURSE Hospital Course: (1) Cellulitis He had very extensive cellulitis of the left lower extremity and he did spike to >38 degrees C and WBC went below normal. He was changed to inpatient status. He got iv hydration and was on empiric iv Vanco and Rocephin for all his days here. The area of redness and induration started to recede to the distal third of monsalve and calf as opposed to the entirety that was present on admission. Blood cultures remained neg. He was discharged on po Clindamycin, to be dosed under the supervision of his parents (he went home to his parents house, not to his residence). (2) Autism Developmental delay was noted. During the hospitalization, this correct condition was ascertained. (3) History of psychosis He was kept on lamictal and olanzapine (4) Onychomycosis This condition, in a developmentally delayed individual, may have been the cause of the cellulitis (this was his mother's suspicion as well). He needs Podiatry care sson. - ALLERGIES Allergies/Adverse Reactions: Allergies Allergy/AdvReac Type Severity Reaction Status Date / Time No Known Drug Allergies Allergy Verified 01/19/19 16:45 - MEDICATIONS Home Medications: Ambulatory Orders Medication Instructions Recorded Confirmed RX: Olanzapine 7.5 mg PO QDBREAKFAST #30 tablet 06/14/14 01/20/19 RX: Metformin HCl 500 mg PO BIDWM 01/20/19 01/20/19 RX: OLANZapine [Olanzapine] 15 mg PO QPM 01/20/19 01/20/19 RX: PARoxetine HCl [Paroxetine HCl] 10 mg PO QPM 01/20/19 01/20/19 RX: hydrOXYzine pamoate 50 - 100 mg PO QPM 01/20/19 01/20/19 [Hydroxyzine Pamoate] RX: lamoTRIgine [Lamictal] 150 mg PO BID 01/20/19 01/20/19 RX: Clindamycin HCl [Clindamycin 300 mg PO QID #28 capsule 01/22/19 300MG CAP] Saccharomyces Boulardii [Florastor] 250 mg PO BID #14 capsule 01/22/19 - PHYSICAL EXAM AT DISCHARGE General Appearance: positive: No acute distress, Alert Eyes Bilateral: positive: Normal inspection ENT: positive: ENT inspection nml Neck: positive: Nml inspection, No JVD Respiratory: positive: No respiratory distress Cardiovascular: positive: Regular rate & rhythm Abdomen: positive: No distention Skin: positive: Other (L leg red, swollen & indurated from top of foot to above ankle. L great toenail thick, long, curling) - LABS Result Diagrams: 01/22/19 04:50 01/22/19 04:50 - DIAGNOSTIC IMAGING Diagnostic Imaging Results: Final report reviewed - FOLLOW UP Follow Up: See PCP in 1 week. See Inside Tester BRIANA. - TIME SPENT Time Spent in Discharge (Minutes): 30
== END 2019-01-22 19:14 | disposition home or self-care (01) | DRG 603 ==
LOC: ED 16:29 → MS2 01-20 01:02 → MS3 01-20 19:04 → OBSVTOIN 01-21 12:45
PROVIDERS: ADMIT Internal Medicine; ATTEND Internal Medicine
DX: L03.116 Cellulitis of left lower limb (principal); R55 Syncope and collapse; F84.0 Autistic disorder; D64.9 Anemia, unspecified; E87.1 Hypo-osmolality and hyponatremia; E87.8 Other disorders of electrolyte and fluid balance, not elsewhere classified; S00.81XA Abrasion of other part of head, initial encounter; B35.1 Tinea unguium; H55.00 Unspecified nystagmus; R42 Dizziness and giddiness; R62.50 Unspecified lack of expected normal physiological development in childhood; R00.0 Tachycardia, unspecified; R26.81 Unsteadiness on feet; S01.80XA Unspecified open wound of other part of head, initial encounter; W18.39XA Other fall on same level, initial encounter; F20.9 Schizophrenia, unspecified; F32.9 Major depressive disorder, single episode, unspecified; G40.909 Epilepsy, unspecified, not intractable, without status epilepticus; Z79.899 Other long term (current) drug therapy
CPT/HCPCS: 36415; 51798; 73590; 73610; 80048; 80053; 80175; 80202; 81001; 82550; 83036; 83605; 83690; 84484; 85025; 87040; 87640; 93005; 93971; 96361; 96365; 96366; 96367; 96368; 96372; 96375; 99284; 99285; A9270; G0378; J1650; J3370; 80306; 87086

== ENCOUNTER 2019-02-07 12:41 | Outpatient (CLI) | payer MEDICARE, MEDICAID ==
--- NOTE | 2019-02-08 09:42 | XRAY Report ---
Reason: BURSITIS Procedure Date: 02/07/2019 Accession Number: [id number] / [id number] Procedure: XRN - Elbow 3 View LT CPT Code: Final Report FULL RESULT: EXAM: LEFT ELBOW RADIOGRAPHY EXAM DATE: 02/07/2019 01:08 PM. CLINICAL HISTORY: BURSITIS. Ground-level fall one week ago. COMPARISON: None. TECHNIQUE: 3 views. FINDINGS: Bones: No fractures or bone lesions. Joints: No dislocation. No definite elbow joint effusion. Soft Tissues: There is mild soft tissue swelling overlying the olecranon process. IMPRESSION: 1. No definite acute osseous abnormality. No convincing elbow joint effusion. 2. Soft tissue swelling. If there is clinical concern for radiographically occult fracture, consider immobilization with repeat radiograph in 7-10 days or alternatively MRI. [facility]
== END 2019-02-07 12:42 | disposition home or self-care (01) ==
LOC: DI.N 12:41
PROVIDERS: ATTEND Physician Assistant Medical
DX: M70.32 Other bursitis of elbow, left elbow (principal)

== ENCOUNTER 2020-05-06 14:58 | Outpatient (CLI) | payer MEDICARE, MEDICAID ==
[2020-05-06 18:08] LABS: BASOPHILS % (AUTO) 0.5 %; EOSINOPHILS % (AUTO) 0.3 %; HCT - HEMATOCRIT 42.2 % (42.0-52.0); HGB - HEMOGLOBIN 13.8 g/dL (14.0-18.0); LYMPHOCYTES # (AUTO) 1.1 10^3/uL (1.5-3.5); LYMPHOCYTES % (AUTO) 29.8 %; MEAN CORPUSCULAR HEMOGLOBIN 28.3 pg (27.0-31.0); MEAN CORPUSCULAR HGB CONC 32.7 g/dL (32.0-36.0); MEAN CORPUSCULAR VOLUME 86.7 fL (80.0-94.0); MONOCYTES # (AUTO) 0.3 10^3/uL (0.0-1.0); MONOCYTES % (AUTO) 6.8 %; NEUTROPHILS # (AUTO) 2.4 10^3/uL (1.5-6.6); NEUTROPHILS % (AUTO) 62.6 %; PLT - PLATELET COUNT 147 10^3/uL (130-450); RED BLOOD COUNT 4.87 10^6/uL (4.70-6.10); RED CELL DISTRIBUTION WIDTH 12.6 % (12.0-15.0); WHITE BLOOD COUNT 3.8 x10^3/uL (4.8-10.8)
== END 2020-05-06 23:59 | disposition home or self-care (01) ==
LOC: LAB.WCP 14:58
PROVIDERS: ATTEND Psychiatry & Neurology Psychiatry
DX: Z51.81 Encounter for therapeutic drug level monitoring (principal)
CPT/HCPCS: 36415; 85025

== ENCOUNTER 2020-10-28 08:00 | Outpatient (CLI) | payer MEDICARE, MEDICAID ==
[2020-10-28 18:15] LABS: BASOPHILS % (AUTO) 0.2 %; EOSINOPHILS % (AUTO) 0.5 %; HCT - HEMATOCRIT 41.6 % (42.0-52.0); HGB - HEMOGLOBIN 13.6 g/dL (14.0-18.0); LYMPHOCYTES # (AUTO) 1.1 10^3/uL (1.5-3.5); LYMPHOCYTES % (AUTO) 25.5 %; MEAN CORPUSCULAR HEMOGLOBIN 28.6 pg (27.0-31.0); MEAN CORPUSCULAR HGB CONC 32.7 g/dL (32.0-36.0); MEAN CORPUSCULAR VOLUME 87.4 fL (80.0-94.0); MEAN PLATELET VOLUME 11.1 fL (7.4-11.4); MONOCYTES # (AUTO) 0.3 10^3/uL (0.0-1.0); MONOCYTES % (AUTO) 6.4 %; NEUTROPHILS # (AUTO) 2.9 10^3/uL (1.5-6.6); NEUTROPHILS % (AUTO) 67.2 %; PLT - PLATELET COUNT 145 10^3/uL (130-450); RED BLOOD COUNT 4.76 10^6/uL (4.70-6.10); RED CELL DISTRIBUTION WIDTH 12.9 % (12.0-15.0); WHITE BLOOD COUNT 4.4 x10^3/uL (4.8-10.8)
[2020-10-28 19:00] LABS: % IRON SATURATION 15 % (20-50); ALBUMIN 4.7 g/dL (3.2-5.5); ALBUMIN/GLOBULIN RATIO 1.9 (1.0-2.2); ALKALINE PHOSPHATASE 55 IU/L (42-121); ALT ALANINE AMINOTRANSFERASE 14 IU/L (10-60); AST ASPARTATE AMINOTRANSFERASE 17 IU/L (10-42); BILIRUBIN,TOTAL 0.6 mg/dL (0.2-1.0); BUN - BLOOD UREA NITROGEN 14 mg/dL (6-20); CARBON DIOXIDE - CO2 26 mmol/L (21-32); CHLORIDE 105 mmol/L (101-111); CHOL/HDL RATIO 3.1 (<5.0); CHOLESTEROL 147 mg/dL; CREATININE 0.7 mg/dL (0.6-1.2); GFR - MDRD 124 (>89); GLUCOSE 84 mg/dL (70-100); HDL CHOLESTEROL 47 mg/dL; IRON 50 ug/dL (45-182); POTASSIUM 4.2 mmol/L (3.5-5.0); SODIUM 140 mmol/L (135-145); TOTAL IRON BINDING CAPACITY 335 ug/dL (250-450); TOTAL PROTEIN 7.2 g/dL (6.7-8.2); TRANSFERRIN 239 mg/dL (180-329); TRIGLYCERIDES 39 mg/dL
[2020-10-28 19:09] LABS: THYROID STIMULATING HORMONE 1.16 uIU/mL (0.34-5.60)
[2020-10-28 19:15] LABS: FERRITIN 46.6 ng/mL (23.9-336.2)
[2020-10-28 20:40] LABS: ESTIMATED AVERAGE GLUCOSE 91 mg/dL (70-100); HEMOGLOBIN A1c% 4.8 % (4.27-6.07)
== END 2020-10-28 23:59 | disposition home or self-care (01) ==
LOC: LAB.WCP 08:00
PROVIDERS: ATTEND Family Medicine
DX: R56.9 Unspecified convulsions (principal); E78.5 Hyperlipidemia, unspecified; D64.9 Anemia, unspecified; Z79.899 Other long term (current) drug therapy
CPT/HCPCS: 36415; 80053; 80061; 82607; 82728; 83036; 83540; 83721; 84443; 84466; 85025

== ENCOUNTER 2021-01-21 13:36 | Outpatient (CLI) | payer MEDICAID | END 2021-01-21 13:37 | disposition EMS.NT | LOC: EMS 13:36 | DX: F41.9 Anxiety disorder, unspecified (principal) ==

== ENCOUNTER 2023-03-18 10:09 | Outpatient (CLI) | payer MEDICARE, MEDICAID ==
[2023-03-18 17:30] LABS: BASOPHILS % (AUTO) 0.4 %; HCT - HEMATOCRIT 42.9 % (42.0-52.0); LYMPHOCYTES % (AUTO) 36.7 %; MEAN CORPUSCULAR HEMOGLOBIN 28.4 pg (27.0-31.0); MEAN CORPUSCULAR HGB CONC 32.6 g/dL (32.0-36.0); MEAN PLATELET VOLUME 11.3 fL (7.4-11.4); MONOCYTES % (AUTO) 8.1 %; NEUTROPHILS % (AUTO) 54.4 %; PLT - PLATELET COUNT 134 10^3/uL (130-450); RED BLOOD COUNT 4.93 10^6/uL (4.70-6.10); RED CELL DISTRIBUTION WIDTH 13.2 % (12.0-15.0); WHITE BLOOD COUNT 2.7 x10^3/uL (4.8-10.8)
[2023-03-18 17:32] LABS: ABNORMAL LYMPHS % (MANUAL) 0 %; BAND NEUTROPHILS % (MANUAL) 0 %
[2023-03-18 17:55] LABS: ALBUMIN 4.6 g/dL (3.2-5.5); ALBUMIN/GLOBULIN RATIO 1.8 (1.0-2.2); ALKALINE PHOSPHATASE 51 IU/L (42-121); ALT ALANINE AMINOTRANSFERASE 18 IU/L (10-60); AST ASPARTATE AMINOTRANSFERASE 24 IU/L (10-42); BILIRUBIN,TOTAL 0.6 mg/dL (0.2-1.0); BUN - BLOOD UREA NITROGEN 16 mg/dL (6-20); CALCIUM 9.4 mg/dL (8.5-10.3); CARBON DIOXIDE - CO2 30 mmol/L (21-32); CHLORIDE 105 mmol/L (101-111); CHOLESTEROL 202 mg/dL; CREATININE 0.8 mg/dL (0.6-1.3); GFR - MDRD 105 (>89); GLUCOSE 87 mg/dL (74-104); HDL CHOLESTEROL 51 mg/dL; LDL CHOLESTEROL,CALCULATED 139 mg/dL; LDL/HDL RATIO 2.7 (<3.6); POTASSIUM 4.7 mmol/L (3.5-4.5); SODIUM 139 mmol/L (135-145); TOTAL PROTEIN 7.2 g/dL (6.4-8.9); TRIGLYCERIDES 62 mg/dL (48-352); VLDL CHOLESTEROL 12 mg/dL
[2023-03-18 18:01] LABS: ESTIMATED AVERAGE GLUCOSE 94 mg/dL (70-100); HEMOGLOBIN A1c% 4.9 % (4.27-6.07)
[2023-03-18 18:10] LABS: THYROID STIMULATING HORMONE 1.57 uIU/mL (0.34-5.60)
[2023-03-18 19:05] LABS: BASOPHILS % (MANUAL) 1 %; EOSINOPHILS # (MANUAL) 0.1 10^3/uL (0-0.7); LYMPHOCYTES # (MANUAL) 1.1 10^3/uL (1.5-3.5); LYMPHOCYTES % (MANUAL) 35 %; MONOCYTES # (MANUAL) 0.2 10^3/uL (0.0-1.0); NEUTROPHILS # (MANUAL) 1.3 10^3/uL (1.5-6.6); REACTIVE LYMPHS % (MANUAL) 5 %
[2023-03-18 19:06] LABS: DIFFERENTIAL COMMENT MANUAL DIFFERENTIAL; PLATELET ESTIMATE, MANUAL NORMAL (130-450,000) (NORMAL); PLATELET MORPHOLOGY NORMAL APPEARANCE (NORMAL); RBC MORPHOLOGY (MULTIPLE) NORMAL APPEARANCE (NORMAL)
== END 2023-03-18 10:10 | disposition home or self-care (01) ==
LOC: LAB.N 10:09
PROVIDERS: ATTEND Nurse Practitioner Family
DX: E78.5 Hyperlipidemia, unspecified (principal); Z79.899 Other long term (current) drug therapy; E66.9 Obesity, unspecified; D72.819 Decreased white blood cell count, unspecified
CPT/HCPCS: 36415; 80053; 80061; 80175; 83036; 83721; 84443; 85025